=== PATIENT | female | born 1945 | race Caucasian/White ===

== ENCOUNTER → 2016-12-22 | Outpatient (CLI) | payer MEDICARE ==
[~2016-12-22] MED LIST: AMANTADINE HCL100 M2 PO; ASPIRIN ADULT L81 M1 PO; AVPAK PRIMIDON250 M1 PO; CELEXA20 MG PO; CEPHALEXIN500 M1 PO; CIPRO250 MG PO; CLONAZEPAM1 MG PO; COREG12.5 M1 PO; COUMADIN5 M2 PO; COUMADIN6 M2 PO; COZAAR50 M1 PO; CYCLOBENZAPRINE5 M3 PO; Coumadin10 MG PO; Coumadin5 MG PO; D3 VITAMIN400 IU/ML PO; DOXYCYCLINE100 M3 PO; EFFEXOR XR37.5 M1 PO; EFFEXOR XR75 MG PO; EFFEXOR37.5 MG PO; FERROUS SULFATE65 MG PO; FLEXERIL10 MG PO; FLONASE ALLERG9.9 ML NAS; FLOVENT DI100 MCG/Ac INH; HYDROCODONE BIT1 T11 PO; KLONOPIN2 M1 PO; LAMISIL250 MG PO; LASIX40 MG PO; LEVOFLOXACIN500 MG PO; LIPITOR10 MG PO; LIPITOR20 MG PO; LOPRESSOR25 MG PO; MIRAPEX PO; MIRAPEX0.25 MG PO; MIRTAZAPINE15 M2 PO; MYSOLINE250 MG PO; MYSOLINE50 MG PO; NAPROXEN220 MG PO; NEURONTIN300 MG PO; NITROSTAT0.4 MG SL; PRAVASTATIN SOD20 MG PO; PRESERVISION L1 EACH PO; PRESERVISION LU1 SGL PO; REMERON15 M2 PO; REXULTI1 MG PO; SEPTRA DS 800 M1 TAB PO; SIMVASTATIN20 MG PO; SYNTHROID,LEV125 MCG PO; SYNTHROID0.112 MG PO; SYNTHROID0.125 MG PO; TOPAMAX100 M1 PO; TOPAMAX100 MG PO; VITAMIN D-32000 UNIT PO; VITAMIN D3400 IU PO; VITAMIN D50000 I3 PO; XANAX0.25 MG PO
[2016-12-22 14:54] LABS: BASO % 0.5 % (0.0-1.0); EOS # 0.2 10*3/uL (0.0-0.4); EOS % 2.3 % (1.0-4.0); HEMATOCRIT 40.1 % (37.0-47.0); HEMOGLOBIN 12.7 g/dl (12.0-16.0); LYMPH # 1.4 10*3/uL (1.3-4.4); LYMPH % 20.8 % (27.0-41.0); MEAN CELL VOLUME 95.2 fl (81.0-99.0); MEAN CORPUSCULAR HGB 30.2 pg (27.0-31.0); MEAN CORPUSCULAR HGB CONC 31.7 g/dl (33.0-37.0); MEAN PLATELET VOLUME 10.1 fl (9.6-12.3); MONO # 0.5 10*3/uL (0.1-1.0); MONO % 7.4 % (3.0-9.0); NEUT # 4.6 10*3/uL (2.3-7.9); NEUT % 68.5 % (47.0-73.0); PLATELET COUNT AUTOMATED 269 10*3/uL (130-400); RED BLOOD COUNT 4.21 10*6/uL (4.10-5.10); RED CELL DISTRI WIDTH 13.7 % (0-14.5); WHITE BLOOD COUNT 6.7 10*3/uL (4.8-10.8)
== END | disposition home or self-care (01) ==
LOC: LAB 14:09 → CT 15:00
PROVIDERS: Orthopaedic Surgery
DX: S79.911A Unspecified injury of right hip, initial encounter (principal); M85.88 Other specified disorders of bone density and structure, other site; M16.11 Unilateral primary osteoarthritis, right hip; Z96.643 Presence of artificial hip joint, bilateral; Z90.710 Acquired absence of both cervix and uterus; X58.XXXA Exposure to other specified factors, initial encounter; Y93.89 Activity, other specified; Y92.89 Other specified places as the place of occurrence of the external cause; Y99.8 Other external cause status

== ENCOUNTER → 2016-12-29 | Outpatient (CLI) | payer MEDICARE | END | disposition home or self-care (01) | LOC: NM 12-22 10:00 | DX: M25.562 Pain in left knee (principal); M25.561 Pain in right knee; Z96.653 Presence of artificial knee joint, bilateral ==

== ENCOUNTER → 2017-12-29 | Outpatient (CLI) | payer MEDICARE | END | disposition home or self-care (01) | LOC: RAD 11:40 | DX: M54.5 Low back pain (principal); M54.6 Pain in thoracic spine ==

== ENCOUNTER → 2018-05-29 | Outpatient (CLI) | payer MEDICARE ==
[2018-05-29 11:42] LABS: CHOLESTEROL 127 mg/dL (<200); HDL CHOLESTEROL 56 mg/dl (40-60); LDL CHOLESTEROL 58 mg/dL (9-159); TRIGLYCERIDES 64 mg/dl (<150); VLDL CHOLESTEROL 13 mg/dL (6-40)
== END | disposition home or self-care (01) ==
LOC: LAB 10:49
PROVIDERS: Nurse Practitioner Family
DX: I48.0 Paroxysmal atrial fibrillation (principal); E78.5 Hyperlipidemia, unspecified

== ENCOUNTER → 2018-08-18 | Outpatient (CLI) | payer MEDICARE | END | disposition home or self-care (01) | LOC: WOUNDCARE 04:04 | DX: S61.412A Laceration without foreign body of left hand, initial encounter (principal); I48.91 Unspecified atrial fibrillation; G47.30 Sleep apnea, unspecified; Z95.0 Presence of cardiac pacemaker; Z96.652 Presence of left artificial knee joint; V49.9XXA Car occupant (driver) (passenger) injured in unspecified traffic accident, initial encounter; Y93.89 Activity, other specified; Y92.89 Other specified places as the place of occurrence of the external cause; Y99.8 Other external cause status ==

== ENCOUNTER → 2018-08-25 | Outpatient (CLI) | payer MEDICARE | END | disposition home or self-care (01) | DX: S61.412D Laceration without foreign body of left hand, subsequent encounter (principal); I48.91 Unspecified atrial fibrillation; I51.9 Heart disease, unspecified; G47.30 Sleep apnea, unspecified; X58.XXXD Exposure to other specified factors, subsequent encounter ==

== ENCOUNTER → 2018-09-01 | Outpatient (CLI) | payer MEDICARE | END | disposition home or self-care (01) | LOC: WOUNDCARE 05:05 | DX: S61.412D Laceration without foreign body of left hand, subsequent encounter (principal); I48.91 Unspecified atrial fibrillation; I51.9 Heart disease, unspecified; G47.30 Sleep apnea, unspecified; V49.9XXD Car occupant (driver) (passenger) injured in unspecified traffic accident, subsequent encounter ==

== ENCOUNTER → 2018-11-02 | Outpatient (CLI) | payer MEDICARE ==
[2018-11-02 15:15] LABS: BASO % 0.6 % (0.0-1.0); EOS # 0.3 10*3/uL (0.0-0.4); EOS % 5.3 % (1.0-4.0); HEMATOCRIT 41.3 % (37.0-47.0); HEMOGLOBIN 13.4 g/dl (12.0-16.0); LYMPH # 1.4 10*3/uL (1.3-4.4); LYMPH % 25.9 % (27.0-41.0); MEAN CELL VOLUME 100.2 fl (81.0-99.0); MEAN CORPUSCULAR HGB 32.5 pg (27.0-31.0); MEAN CORPUSCULAR HGB CONC 32.4 g/dl (33.0-37.0); MEAN PLATELET VOLUME 10.5 fl (9.6-12.3); MONO # 0.5 10*3/uL (0.1-1.0); MONO % 8.8 % (3.0-9.0); NEUT # 3.2 10*3/uL (2.3-7.9); NEUT % 58.8 % (47.0-73.0); PLATELET COUNT AUTOMATED 197 10*3/uL (130-400); RED BLOOD COUNT 4.12 10*6/uL (4.10-5.10); RED CELL DISTRI WIDTH 13.3 % (0-14.5); WHITE BLOOD COUNT 5.5 10*3/uL (4.8-10.8)
== END | disposition home or self-care (01) ==
LOC: LAB 14:44
PROVIDERS: Orthopaedic Surgery
DX: T84.84XA Pain due to internal orthopedic prosthetic devices, implants and grafts, initial encounter (principal); Y83.1 Surgical operation with implant of artificial internal device as the cause of abnormal reaction of the patient, or of later complication, without mention of misadventure at the time of the procedure; Y92.89 Other specified places as the place of occurrence of the external cause

== ENCOUNTER → 2018-12-06 | Outpatient (CLI) | payer MEDICARE | END | disposition home or self-care (01) | LOC: NM 09:03 | DX: S72.092A Other fracture of head and neck of left femur, initial encounter for closed fracture (principal); X58.XXXA Exposure to other specified factors, initial encounter; Y93.89 Activity, other specified; Y92.89 Other specified places as the place of occurrence of the external cause; Y99.8 Other external cause status ==

== ENCOUNTER → 2018-12-25 | Outpatient (CLI) | payer MEDICARE | END | disposition home or self-care (01) | LOC: CT 11:09 | DX: M16.12 Unilateral primary osteoarthritis, left hip (principal); I70.0 Atherosclerosis of aorta; K57.90 Diverticulosis of intestine, part unspecified, without perforation or abscess without bleeding; Z96.642 Presence of left artificial hip joint ==

== ENCOUNTER 2022-10-01 11:31 | Emergency (ER) | payer MEDICARE ==
[~2022-10-01] VITALS: Wt 116.3 kg
[~2022-10-01 11:31] MED LIST changes: +BENADRYL ALLERG25 M5 PO; +CALMOSEPTINE O3.5 GM T; +Coumadin7.5 MG PO; +DEXAMETHASONE6 MG PO; +DITROPAN XL5 MG PO; +ELIQUIS5 M1 PO; +FLUDROCORTISON0.1 MG PO; +FLUOXETINE HCL40 MG PO; +FLUOXETINE HYDR20 M1 PO; +FUROSEMIDE40 MG PO; +INDERAL XL120 MG PO; +Ipratropium Brom3 ML INH; +KLOR-CON M2020 ME1 PO; +LINEZOLID600 MG PO; +METHOCARBAMOL500 M1 PO; +MIRALAX17 GM PO; +MOVANTIK25 MG PO; +MOXIFLOXACIN H400 M1 PO; +NEURONTIN600 MG PO; +ONDANSETRON HYDR4 MG PO; +OXYCODONE HCL5 MG PO; +OXYCODONE5 M1 PO; +POTASSIUM CHLO10 ME5 PO; +REQUIP2 MG PO; +SENNA-LAX8.6 MG PO; +SYNTHROID,LEV112 MCG PO; +TUSSIN DM 10 M237 M1 PO; +TYLENOL325 M1 PO; +ZEASORB AF71 GM T
[2022-10-01 12:36] LABS: BASO % 0.6 % (0.0-1.0); EOS # 0.2 10*3/uL (0.0-0.4); EOS % 2.4 % (1.0-4.0); HEMATOCRIT 33.3 % (37.0-47.0); LYMPH # 1.7 10*3/uL (1.3-4.4); MEAN CELL VOLUME 102.8 fl (81.0-99.0); MEAN CORPUSCULAR HGB 30.2 pg (27.0-31.0); MEAN CORPUSCULAR HGB CONC 29.4 g/dl (33.0-37.0); MEAN PLATELET VOLUME 9.9 fl (9.6-12.3); MONO # 0.6 10*3/uL (0.1-1.0); MONO % 8.1 % (3.0-9.0); NEUT # 4.3 10*3/uL (2.3-7.9); NEUT % 63.6 % (47.0-73.0); PLATELET COUNT AUTOMATED 300 10*3/uL (130-400); RED BLOOD COUNT 3.24 10*6/uL (4.10-5.10); RED CELL DISTRI WIDTH 15.7 % (0-14.5); WHITE BLOOD COUNT 6.8 10*3/uL (4.8-10.8)
[2022-10-01 12:47] LABS: ACT PARTIAL THROMBO TIME 26.5 SECONDS (20.0-32.1); INTERNATIONAL NORM RATIO 1.2 (2.0-3.5)
[2022-10-01 12:51] LABS: ALKALINE PHOSPHATASE 83 U/L (46-116); BUN 11 mg/dl (9-23); CHLORIDE 105 mmol/L (98-107); LIPASE 24 U/L (12-53); POTASSIUM 3.7 mmol/L (3.4-5.1); SGPT/ALT 8 U/L (10-49); TOTAL PROTEIN 6.3 gm/dL (6.0-8.0)
[2022-10-01] MEDS ORDERED: VIBRA-TAB100 MG PO (15:24)
== END 2022-10-01 15:53 ==
LOC: ED 11:31
PROVIDERS: Emergency Medicine
DX: S81.812A Laceration without foreign body, left lower leg, initial encounter (principal); Z88.1 Allergy status to other antibiotic agents; Z79.899 Other long term (current) drug therapy; Z88.8 Allergy status to other drugs, medicaments and biological substances; Z88.5 Allergy status to narcotic agent; Z90.49 Acquired absence of other specified parts of digestive tract; Z98.890 Other specified postprocedural states; Z95.9 Presence of cardiac and vascular implant and graft, unspecified; W26.8XXA Contact with other sharp object(s), not elsewhere classified, initial encounter; Y93.89 Activity, other specified; Y92.89 Other specified places as the place of occurrence of the external cause; Y99.8 Other external cause status

== ENCOUNTER 2022-10-22 18:51 | Inpatient (IN) | payer MEDICARE ==
[~2022-10-22] VITALS: Ht 167.6 cm; Wt 99.8 kg
[~2022-10-22 18:51] MED LIST changes: +VIBRA-TAB100 MG PO
[2022-10-22 18:58] VITALS: BP 130/57
[2022-10-22 19:19] LABS: BASO % 0.3 % (0.0-1.0); EOS # 0.1 10*3/uL (0.0-0.4); EOS % 1.6 % (1.0-4.0); LYMPH # 1.9 10*3/uL (1.3-4.4); LYMPH % 22.2 % (27.0-41.0); MEAN CORPUSCULAR HGB 30.5 pg (27.0-31.0); MEAN CORPUSCULAR HGB CONC 32.1 g/dl (33.0-37.0); MEAN PLATELET VOLUME 10.3 fl (9.6-12.3); MONO # 0.6 10*3/uL (0.1-1.0); MONO % 6.4 % (3.0-9.0); NEUT % 69.2 % (47.0-73.0); PLATELET COUNT AUTOMATED 289 10*3/uL (130-400); RED BLOOD COUNT 4.42 10*6/uL (4.10-5.10); RED CELL DISTRI WIDTH 14.8 % (0-14.5); WHITE BLOOD COUNT 8.7 10*3/uL (4.8-10.8)
[2022-10-22 19:38] LABS: ACT PARTIAL THROMBO TIME 35.3 SECONDS (20.0-32.1); INTERNATIONAL NORM RATIO 2.1 (2.0-3.5)
[2022-10-22 19:39] LABS: TOTAL PROTEIN 7.7 gm/dL (6.0-8.0)
[2022-10-22 19:51] LABS: POTASSIUM 2.1 mmol/L (3.4-5.1)
[2022-10-22 22:25] VITALS: BP 134/76
[2022-10-23 00:08] LABS: BILIRUBIN Negative (Negative); BLOOD Trace-Intact (Negative); CLARITY Turbid (Clear); COLOR Yellow (Yellow); GLUCOSE Negative (Negative); KETONE Negative (Negative); LEUKO ESTERASE 3+ (Negative); NITRITE Negative (Negative); SPECIFIC GRAVITY 1.015 (1.001-1.030); UROBILINOGEN 0.2 E.U./dl (0.0-1.0)
[2022-10-23 00:21] VITALS: BP 128/84
[2022-10-23 01:04] LABS: WBC TNTC wbc/hpf (0-5)
[2022-10-23 04:59] VITALS: BP 128/84
[2022-10-23 06:35] LABS: BASO % 0.4 % (0.0-1.0); EOS # 0.2 10*3/uL (0.0-0.4); HEMATOCRIT 38.3 % (37.0-47.0); LYMPH # 1.8 10*3/uL (1.3-4.4); LYMPH % 22.9 % (27.0-41.0); MEAN CELL VOLUME 95.3 fl (81.0-99.0); MEAN CORPUSCULAR HGB 30.3 pg (27.0-31.0); MEAN CORPUSCULAR HGB CONC 31.9 g/dl (33.0-37.0); MEAN PLATELET VOLUME 9.9 fl (9.6-12.3); MONO # 0.6 10*3/uL (0.1-1.0); MONO % 7.7 % (3.0-9.0); NEUT # 5.4 10*3/uL (2.3-7.9); NEUT % 66.8 % (47.0-73.0); PLATELET COUNT AUTOMATED 279 10*3/uL (130-400); RED BLOOD COUNT 4.02 10*6/uL (4.10-5.10); RED CELL DISTRI WIDTH 14.8 % (0-14.5)
[2022-10-23 06:45] LABS: INTERNATIONAL NORM RATIO 1.9 (2.0-3.5)
[2022-10-23 07:28] VITALS: BP 120/57
[2022-10-23 08:13] LABS: ALKALINE PHOSPHATASE 94 U/L (46-116); BUN 26 mg/dl (9-23); CHLORIDE 92 mmol/L (98-107); SGPT/ALT 9 U/L (10-49); TOTAL PROTEIN 6.7 gm/dL (6.0-8.0)
[2022-10-23 08:21] LABS: POTASSIUM 2.3 mmol/L (3.4-5.1)
[2022-10-23] MEDS ORDERED: Coumadin7.5 MG PO (11:54)
[2022-10-23] MEDS ORDERED: Zaroxolyn,Diul2.5 MG PO (11:55)
[2022-10-23 12:30] VITALS: BP 128/60
[2022-10-23 12:31] LABS: BUN 25 mg/dl (9-23); CHLORIDE 91 mmol/L (98-107); POTASSIUM 3.1 mmol/L (3.4-5.1)
[2022-10-23 16:18] VITALS: BP 119/50
[2022-10-23 18:16] LABS: BUN 21 mg/dl (9-23); CHLORIDE 92 mmol/L (98-107); POTASSIUM 2.6 mmol/L (3.4-5.1)
[2022-10-23 20:00] VITALS: BP 126/60
[2022-10-24] VITALS: BP 121/56
[2022-10-24 06:06] LABS: BASO % 0.3 % (0.0-1.0); EOS # 0.2 10*3/uL (0.0-0.4); EOS % 3.1 % (1.0-4.0); HEMATOCRIT 39.2 % (37.0-47.0); LYMPH # 1.6 10*3/uL (1.3-4.4); LYMPH % 23.2 % (27.0-41.0); MEAN CELL VOLUME 96.6 fl (81.0-99.0); MEAN CORPUSCULAR HGB 30.5 pg (27.0-31.0); MEAN CORPUSCULAR HGB CONC 31.6 g/dl (33.0-37.0); MEAN PLATELET VOLUME 10.3 fl (9.6-12.3); MONO # 0.5 10*3/uL (0.1-1.0); MONO % 6.6 % (3.0-9.0); NEUT # 4.6 10*3/uL (2.3-7.9); NEUT % 66.5 % (47.0-73.0); PLATELET COUNT AUTOMATED 300 10*3/uL (130-400); RED BLOOD COUNT 4.06 10*6/uL (4.10-5.10); RED CELL DISTRI WIDTH 14.9 % (0-14.5); WHITE BLOOD COUNT 6.9 10*3/uL (4.8-10.8)
[2022-10-24 06:09] LABS: INTERNATIONAL NORM RATIO 1.6 (2.0-3.5)
[2022-10-24 08:00] VITALS: BP 127/56
[2022-10-24 09:12] LABS: BUN 20 mg/dl (9-23); CHLORIDE 96 mmol/L (98-107); POTASSIUM 3.2 mmol/L (3.4-5.1)
[2022-10-24 12:00] VITALS: BP 109/54
[2022-10-24 16:00] VITALS: BP 112/54
[2022-10-24 20:00] VITALS: BP 135/67
[2022-10-24] MEDS ORDERED: WARFARIN SODIUM4 MG PO (22:47)
[2022-10-24] MEDS ORDERED: GABAPENTIN800 MG PO (22:53)
[2022-10-25] VITALS: BP 132/68
[2022-10-25 06:50] LABS: BASO % 0.3 % (0.0-1.0); EOS # 0.3 10*3/uL (0.0-0.4); EOS % 4.7 % (1.0-4.0); LYMPH # 1.7 10*3/uL (1.3-4.4); LYMPH % 27.1 % (27.0-41.0); MEAN CELL VOLUME 97.4 fl (81.0-99.0); MEAN CORPUSCULAR HGB 30.3 pg (27.0-31.0); MEAN CORPUSCULAR HGB CONC 31.1 g/dl (33.0-37.0); MEAN PLATELET VOLUME 10.1 fl (9.6-12.3); MONO # 0.4 10*3/uL (0.1-1.0); MONO % 6.8 % (3.0-9.0); NEUT # 3.9 10*3/uL (2.3-7.9); NEUT % 60.9 % (47.0-73.0); PLATELET COUNT AUTOMATED 267 10*3/uL (130-400); RED CELL DISTRI WIDTH 15.5 % (0-14.5); WHITE BLOOD COUNT 6.4 10*3/uL (4.8-10.8)
[2022-10-25 07:04] LABS: BUN 15 mg/dl (9-23); CHLORIDE 97 mmol/L (98-107); POTASSIUM 3.2 mmol/L (3.4-5.1)
[2022-10-25 08:00] VITALS: BP 131/72
[2022-10-25 12:00] VITALS: BP 126/51
[2022-10-25] MEDS ORDERED: OXYCODONE5 M1 PO (12:17)
[2022-10-25] MEDS ORDERED: KLOR-CON M2020 ME1 PO (12:19)
[2022-10-25] MEDS ORDERED: MACRODANTIN100 M1 PO (12:27)
== END 2022-10-25 14:56 | DRG 640 ==
LOC: ED 18:51 → 5E 20:01 → EDHOLD 20:01 → 5E 10-23 14:22
PROVIDERS: Emergency Medicine; Internal Medicine; ADMIT Internal Medicine; ATTEND Internal Medicine
DX: E87.6 Hypokalemia (principal); N17.0 Acute kidney failure with tubular necrosis; E44.1 Mild protein-calorie malnutrition; N39.0 Urinary tract infection, site not specified; F33.9 Major depressive disorder, recurrent, unspecified; I12.9 Hypertensive chronic kidney disease with stage 1 through stage 4 chronic kidney disease, or unspecified chronic kidney disease; Z66 Do not resuscitate; Z51.5 Encounter for palliative care; E87.3 Alkalosis; N18.31 Chronic kidney disease, stage 3a; I25.10 Atherosclerotic heart disease of native coronary artery without angina pectoris; E87.8 Other disorders of electrolyte and fluid balance, not elsewhere classified; Z96.653 Presence of artificial knee joint, bilateral; R73.9 Hyperglycemia, unspecified; I48.0 Paroxysmal atrial fibrillation; G25.0 Essential tremor; B96.20 Unspecified Escherichia coli [E. coli] as the cause of diseases classified elsewhere; Z90.49 Acquired absence of other specified parts of digestive tract; Z95.5 Presence of coronary angioplasty implant and graft; Z82.49 Family history of ischemic heart disease and other diseases of the circulatory system; Z88.5 Allergy status to narcotic agent; Z88.8 Allergy status to other drugs, medicaments and biological substances; Z79.1 Long term (current) use of non-steroidal anti-inflammatories (NSAID); Z79.899 Other long term (current) drug therapy; Z79.2 Long term (current) use of antibiotics; Z79.01 Long term (current) use of anticoagulants

== ENCOUNTER → 2022-11-24 | Outpatient (CLI) | payer MEDICARE ==
[~2022-11-24] MED LIST changes: +GABAPENTIN800 MG PO; +MACRODANTIN100 M1 PO; +WARFARIN SODIUM4 MG PO; +Zaroxolyn,Diul2.5 MG PO
== END | disposition home or self-care (01) ==
LOC: RAD 02:29
PROVIDERS: ATTEND Student in an Organized Health Care Education/Training Program
DX: S92.515A Nondisplaced fracture of proximal phalanx of left lesser toe(s), initial encounter for closed fracture (principal); X58.XXXA Exposure to other specified factors, initial encounter; Y93.89 Activity, other specified; Y92.89 Other specified places as the place of occurrence of the external cause; Y99.8 Other external cause status

== ENCOUNTER 2022-12-25 12:41 | Emergency (ER) | payer MEDICARE ==
[~2022-12-25] VITALS: Ht 167.6 cm; Wt 117.9 kg
[~2022-12-25 12:41] MED LIST changes: +NITROFURANTOIN100 M9 PO; +ONDANSETRON HYDR4 M1 PO; +PRESERVISION A1 EAC9 PO
[2022-12-25 13:07] LABS: BASO % 0.5 % (0.0-1.0); EOS # 0.3 10*3/uL (0.0-0.4); EOS % 4.3 % (1.0-4.0); HEMATOCRIT 32.8 % (37.0-47.0); LYMPH # 1.1 10*3/uL (1.3-4.4); LYMPH % 16.9 % (27.0-41.0); MEAN CORPUSCULAR HGB 29.6 pg (27.0-31.0); MEAN CORPUSCULAR HGB CONC 29.6 g/dl (33.0-37.0); MEAN PLATELET VOLUME 9.8 fl (9.6-12.3); MONO # 0.4 10*3/uL (0.1-1.0); MONO % 6.7 % (3.0-9.0); NEUT # 4.7 10*3/uL (2.3-7.9); NEUT % 71.3 % (47.0-73.0); PLATELET COUNT AUTOMATED 248 10*3/uL (130-400); RED BLOOD COUNT 3.28 10*6/uL (4.10-5.10); RED CELL DISTRI WIDTH 15.8 % (0-14.5); WHITE BLOOD COUNT 6.6 10*3/uL (4.8-10.8)
[2022-12-25 13:30] LABS: POTASSIUM 4.4 mmol/L (3.4-5.1); TOTAL PROTEIN 7.3 gm/dL (6.0-8.0)
[2022-12-25 14:26] LABS: BILIRUBIN Negative (Negative); BLOOD Trace-Lysed (Negative); CLARITY Turbid (Clear); COLOR Yellow (Yellow); GLUCOSE Negative (Negative); KETONE Negative (Negative); LEUKO ESTERASE 3+ (Negative); NITRITE Negative (Negative); PH 7.5 (4.5-8.0); UROBILINOGEN 0.2 E.U./dl (0.0-1.0)
[2022-12-25 14:43] LABS: BACTERIA 4+; EPITHELIAL CELLS TNTC; RBC 0-2 rbc/hpf (0-2); WBC TNTC wbc/hpf (0-5)
[2022-12-25] MEDS ORDERED: CIPRO500 MG PO (14:56)
== END 2022-12-25 15:23 ==
LOC: ED 12:41
PROVIDERS: Student in an Organized Health Care Education/Training Program
DX: N39.0 Urinary tract infection, site not specified (principal); D64.9 Anemia, unspecified; E44.1 Mild protein-calorie malnutrition; N18.31 Chronic kidney disease, stage 3a; Z88.8 Allergy status to other drugs, medicaments and biological substances; Z88.1 Allergy status to other antibiotic agents; Z79.899 Other long term (current) drug therapy; Z90.49 Acquired absence of other specified parts of digestive tract; Z98.890 Other specified postprocedural states